=== PATIENT | male | born 1975 | race Caucasian/White ===

== ENCOUNTER 2017-02-11 17:39 | Emergency (ER) | payer OTHER ==
[~2017-02-11] VITALS: Ht 182.9 cm; Wt 128.0 kg
[~2017-02-11 17:39] MED LIST: CEPH-443 PO
[2017-02-11 17:42] VITALS: Ht 182.9 cm; Wt 128.0 kg
[2017-02-11] MEDS ORDERED: SOD CHLORIDE 0.9% 1,000 ML IV STA (18:02)
--- NOTE | 2017-02-11 18:07 | ERD ---
ER Documentation Chief Complaint Chief Complaint pt bib self with c/o right sided flank pain starting 15 min ago HPI This is a 41-year-old male with a recent diagnosis of [id number] diabetes mellitus 1 week prior to arrival started on metformin. The patient indicates he has been compliant with his diabetic medication as well as diet control with low carbohydrate intake. The patient also has a history of hypertension on ambulate doping. The patient indicates that just prior to arrival roughly 15 minutes ago the patient developed a sudden sharp pain in the right flank region. The pain radiated to the right lower quadrant. She also complained of mild dysuria with no frequency urgency or hematuria. He denies any testicular pain. He stated when he awoke this morning he noticed a minimal amount of bright red blood coating his stool but denied any history of hemorrhoids or rectal pain. He did have a previous bowel movement just prior to the onset of his right flank pain and stated there was a very small amount of blood again coating the stool. He has had no fevers or shaking or chills. He denies any recent travel or antibiotic use. He denies any polyuria or polydipsia. He denies any chest pain or pressure that radiates to the neck arm back or jaw. He took his blood glucose prior to arrival and it was 117. The patient did not take any analgesic medication and states he is refusing any analgesic medication as he does not like pain medication. ROS All systems reviewed and are negative except as per history of present illness. Medications Home Meds Active Scripts Cephalexin* (Keflex*) 500 Mg Capsule, 500 MG PO QID for 5 Days, CAP Prov:AVIVA YUEN [employer]PA[employer]ER 11/30/14 Allergies Allergies: Coded Allergies: No Known Allergy (Unverified , 11/30/14) Physical Exam Vitals Vital Signs Date Time Temp Pulse Resp B/P Pulse Ox O2 Delivery O2 Flow Rate FiO2 02/11/17 17:42 98.7 85 18 161/66 98 Physical Exam Constitutional:Well-developed. Well-nourished. HEENT:Normocephalic. Atraumatic.Pupils were equal round reactive to light. Moist mucous membranes.No tonsillar exudates. Neck: No nuchal rigidity. No lymphadenopathy. No posterior cervical spine tenderness or step-offs. Respiratory: Not using accessory muscles of respiration.Lungs were clear to auscultation bilaterally. No rhonchi. No rales. No wheezing. Cardiovascular: Regular rate regular rhythm.No murmurs. No rubs were appreciated.S1, S2 normal. Distal pulses are palpable 2+ bilaterally. GI: Abdomen was soft. Right CVA tenderness. No tenderness in the right lower quadrant over McBurney's point. Psoas sign negative. Obturator sign negative. Non Distended. No pulsatile abdominal masses or bruits. No rebound. No guarding. Bowel sounds were present and normal. Muscle skeletal: Full range of motion of both the upper and lower extremities bilaterally.Normal muscle tone.No assymetrical calf tenderness or swelling. Skin: No petechia, no purpura. No lesions on the palms or the soles of the feet. No maculopapular rash. NEURO: Patient was alert, awake, orientated x3.No facial droop. Gait observed and normal with no ataxia.Speech had regular rate and rhythm. No focal neurological deficits. Result Diagram: 02/11/17 1840 02/11/17 1840 Results 24 hrs Laboratory Tests Test 02/11/17 18:29 02/11/17 18:40 Urine Color YELLOW Urine Clarity CLEAR Urine pH 5.0 Urine Specific [place] 1.015 Urine Ketones NEGATIVEmg/dL Urine Nitrite NEGATIVEmg/dL Urine Bilirubin NEGATIVEmg/dL Urine Urobilinogen 2+mg/dL Urine Leukocyte Esterase NEGATIVELeu/ul Urine Microscopic RBC 150/HPF Urine Microscopic WBC 2/HPF Urine Hemoglobin 3+mg/dL Urine Glucose NEGATIVEmg/dL Urine Total Protein NEGATIVEmg/dl White Blood Count 8.810^3/ul Red Blood Count 5.2010^6/ul Hemoglobin 15.9g/dl Hematocrit 45.2% Mean Corpuscular Volume 86.9fl Mean Corpuscular Hemoglobin 30.6pg Mean Corpuscular Hemoglobin Concent 35.2g/dl Red Cell Distribution Width 11.9% Platelet Count 42388^3/UL Mean Platelet Volume 10.0fl Neutrophils % 68.5% Lymphocytes % 22.0% Monocytes % 7.8% Eosinophils % 0.8% Basophils % 0.7% Nucleated Red Blood Cells % 0.0/100WBC Neutrophils # 6.010^3/ul Lymphocytes # 1.910^3/ul Monocytes # 0.710^3/ul Eosinophils # 0.110^3/ul Basophils # 0.110^3/ul Nucleated Red Blood Cells # 0.010^3/ul Prothrombin Time 13.4Sec Prothrombin Time Ratio 1.0 INR International Normalized Ratio 1.01 Activated Partial Thromboplast Time 25.0Sec Sodium Level 140mmol/L Potassium Level 4.3mmol/L Chloride Level 102mmol/L Carbon Dioxide Level 26mmol/L Anion Gap 16 Blood Urea Nitrogen 15mg/dl Creatinine 0.98mg/dl Glucose Level 145mg/dl Calcium Level 9.1mg/dl Total Bilirubin 0.6mg/dl Direct Bilirubin 0.00mg/dl Indirect Bilirubin 0.6mg/dl Aspartate Amino Transf (AST/SGOT) 57IU/L Alanine Aminotransferase (ALT/SGPT) 103IU/L Alkaline Phosphatase 75IU/L Troponin I < 0.012ng/ml Total Protein 7.1g/dl Albumin 4.3g/dl Globulin 2.80g/dl Albumin/Globulin Ratio 1.53 Amylase Level 66U/L Lipase 196U/L Current Medications Medications (Trade) Dose Ordered Sig/Harjeet Route PRN Reason Start Time Stop Time Status Last Admin Dose Admin Sodium Chloride (NS) 1,000 ml @ 1,000 mls/hr Q1H STAT IV 02/11/17 18:02 02/11/17 19:01 DC 02/11/17 18:42 Procedures/MDM This patient presented to the emergency department with abdominal pain and was seen and evaluated by myself. My differential diagnosis included but was not limited to abdominal aortic aneurysm, appendicitis, pancreatitis, perforated peptic ulcer, perforated viscus, Boerhaaves syndrome or visceral pain such as diverticulitis, DKA, esophagitis, hepatitis or bowel obstruction. The patient was placed on a child monitor, continuous pulse oximetry, and IV access was established by nursing staff. I obtained a 12-lead EKG tracing to rule out atypical myocardial infarction. 12 Lead EKG tracing ordered and reviewed by myself showed: Normal sinus rhythm of 83 bpm and no arrhythmia. OR interval normal. QRS duration normal. No ST segment elevation No ST segment depression. No changes consistent with acute ischemia. I did obtain a CT scan of the abdomen without contrast and the patient had a 4 mm stone in the right kidney with no evidence of obstructive uropathy. The patient had microscopic hematuria thought to be secondary to the patient's nephrolithiasis. He was refusing analgesic medication but did receive a liter bolus of normal saline. Departure Condition: KODAK Tadeo Feb 11, 2017 18:07
[2017-02-11 18:51] LABS: ADD UMIC YES; UR ASCORBIC ACID NEGATIVE (NEGATIVE); UR BILIRUBIN (Dip) NEGATIVE (NEGATIVE); UR BLOOD (Dip) 3+ mg/dL (NEGATIVE); UR CLARITY CLEAR (CLEAR); UR COLOR YELLOW (YELLOW); UR GLUCOSE (Dip) NEGATIVE (NEGATIVE); UR KETONES (Dip) NEGATIVE (NEGATIVE); UR LEUKOCYTE ESTERASE (Dip) NEGATIVE Leu/ul (NEGATIVE); UR NITRITE (Dip) NEGATIVE (NEGATIVE); UR RBC 150 /HPF (0-5); UR SPECIFIC GRAVITY (Dip) 1.015 (1.003-1.030); UR TOTAL PROTEIN (Dip) NEGATIVE (NEGATIVE); UR UROBILINOGEN (Dip) 2+ mg/dL (NEGATIVE)
[2017-02-11 18:57] LABS: BASOPHIL # 0.1 10^3/ul (0.0-0.1); BASOPHILS % 0.7 % (0.0-2.0); EOSINOPHILS # 0.1 10^3/ul (0.0-0.5); EOSINOPHILS % 0.8 % (0.0-7.0); HEMATOCRIT 45.2 % (42.0-52.0); HEMOGLOBIN 15.9 g/dl (14.0-18.0); LYMPHOCYTES # 1.9 10^3/ul (0.8-2.9); MEAN CORPUSCULAR HEMOGLOBIN 30.6 pg (29.0-33.0); MEAN CORPUSCULAR HGB CONC 35.2 g/dl (32.0-37.0); MEAN CORPUSCULAR VOLUME 86.9 fl (82.0-101.0); MONOCYTE # 0.7 10^3/ul (0.3-0.9); MONOCYTES % 7.8 % (0.0-11.0); NEUTROPHILS % 68.5 % (39.0-77.0); PLATELET COUNT 251 10^3/UL (140-415); RED CELL DISTRIBUTION WIDTH 11.9 % (11.5-14.5); WHITE BLOOD COUNT 8.8 10^3/ul (4.8-10.8)
[2017-02-11 19:13] LABS: INR 1.01; PROTIME 13.4 Sec (11.9-14.9)
[2017-02-11 19:43] LABS: ALANINE AMINOTRANSFERASE 103 IU/L (13-69); ALBUMIN 4.3 g/dl (3.3-4.9); ALBUMIN/GLOBULIN RATIO 1.53; ALKALINE PHOSPHATASE 75 IU/L (42-121); AMYLASE 66 U/L (11-123); ANION GAP 16 (8-16); ASPARTATE AMINO TRANSFERASE 57 IU/L (15-46); BILIRUBIN,INDIRECT 0.6 mg/dl (0-1.1); BILIRUBIN,TOTAL 0.6 mg/dl (0.2-1.3); BLOOD UREA NITROGEN 15 mg/dl (7-20); CALCIUM 9.1 mg/dl (8.4-10.2); CARBON DIOXIDE 26 mmol/L (21-31); CHLORIDE 102 mmol/L (97-110); CREATININE 0.98 mg/dl (0.61-1.24); GLUCOSE 145 mg/dl (70-220); POTASSIUM 4.3 mmol/L (3.5-5.1); SODIUM 140 mmol/L (135-144); TOTAL PROTEIN 7.1 g/dl (6.1-8.1)
[2017-02-11 19:57] LABS: TROPONIN-I < 0.012 ng/ml (0.00-0.12)
--- NOTE | 2017-02-11 21:47 | RADRPT ---
PROCEDURE: CT abdomen and pelvis without contrast. CLINICAL INDICATION: Abdominal Pain TECHNIQUE: CT scan of the abdomen and pelvis without contrast was performed and is reconstructed a t 2.5 mm contiguous axial intervals from the dome of the diaphragm to the inferior pubic rami.. The patient was scanned without intravenous contrast. Sagittal and coronal reformatted images were obt ained from the axial source images. The calculated radiation dose measures 1532 mGy centimeters. The CTDI measures 24 mGy. Individualized dose optimization technique was used for the performance of this exam. This included 1. Automated exposure control. 2. Adjustment of the mA and / or kV according to the patient's size. 3. Use of iterative reconstructed technique. COMPARISON: None. FINDINGS: The lung bases are clear of any infiltrate or nodule. No effusion is seen. Liver is enlarged measuring 20.5 cm. There is fatty infiltration. No mass or ductal dilatation is pr esent. No gallstones are visualized. No splenic, adrenal or pancreatic abnormalities present. Kidneys are of normal size and contour. No calculus or masses seen. There is minimal fullness of t he right intrarenal collecting system. Ureters are of normal course and caliber with no stone. No b ladder mass is present. There is a 4 mm stone in the dependent urinary bladder. Prostate and seminal vesicles appear normal. There is no aneurysm. No adenopathy is present. No bowel mass or obstruction is present. The appendix is normal. No phlegmon, ascites or pneumop eritoneum is visualized. The osseous structures are intact. IMPRESSION: Enlarged fatty liver. Minimal fullness right intrarenal collecting system. 4 ml bladder stone. Question recent passage of stone. No evidence of diverticulitis or appendicitis. .Julian Atwood MD, Date Time Electronically viewed and signed by .Julian Atwood MD, on 02/11/2017 21:47 .A/
[2017-02-11] MEDS ORDERED: KETOROLAC 30 MG INJ IV STA (22:13)
[2017-02-11] MEDS ORDERED: IBUP800T25 PO (22:14)
[2017-02-11 22:26] VITALS: BP 140/88; PULSE 71; RESP 20; TEMP 98.1
== END 2017-02-11 22:23 | disposition home or self-care (01) ==
LOC: FTE 17:39
DX: R10.9 Unspecified abdominal pain (principal); E11.9 Type 2 diabetes mellitus without complications; R07.9 Chest pain, unspecified
CPT/HCPCS: 36415; 74176; 80053; 81001; 82150; 83690; 84484; 85025; 85610; 85730; 87086; 93005; 96374; J1885; J7030; Z7502